=== PATIENT | female | born 1970 | race Caucasian/White ===

== ENCOUNTER 2019-12-02 13:01 | Emergency (ER) | payer SELFPAY ==
[2019-12-02] MEDS ORDERED: KETOROLAC TROMETHAMINE INJ/PF 30 MG/1 ML SDV IV ONE (13:59)
[2019-12-02] MEDS ORDERED: DIPHENHYDRAMINE HCL 50 MG/ML VIAL IV ONE (13:59)
[2019-12-02] MEDS ORDERED: PROCHLORPERAZINE EDISYLATE INJ 10 MG/2 ML VIAL IV ONE (13:59)
[2019-12-02] MEDS ORDERED: NORMAL SALINE 1000 ML 1,000 ML IV ONE (13:59)
[2019-12-02 14:30] LABS: ABSOLUTE BASOPHILS # (AUTO) 0.1 10^3/uL (0.0-0.2); ABSOLUTE EOSINOPHILS # (AUTO) 0.1 10^3/uL (0.0-0.6); ABSOLUTE LYMPHOCYTES (AUTO) 5.3 10^3/uL (0.5-4.7); ABSOLUTE MONOCYTES (AUTO) 0.9 10^3/uL (0.1-1.4); ABSOLUTE NEUT (AUTO) 10.3 10^3/uL (1.7-8.2); BASOPHILS % (AUTO) 0.7 % (0-2); EOSINOPHILS % (AUTO) 0.8 % (0-6); HEMATOCRIT 44.5 % (36.0-47.0); HEMOGLOBIN 15.3 g/dL (12.0-15.5); LYMPHOCYTES % (AUTO) 31.6 % (13-45); MEAN CORPUSCULAR HEMOGLOBIN 28.3 pg (27.0-33.4); MEAN CORPUSCULAR HGB CONC 34.4 g/dL (32.0-36.0); MEAN CORPUSCULAR VOLUME 82 fl (80-97); MONOCYTES % (AUTO) 5.2 % (3-13); PLATELET COUNT 336 10^3/uL (150-450); RED CELL DISTRIBUTION WIDTH 12.3 % (11.5-14.0); SEGMENTED NEUTROPHILS % (AUTO) 61.7 % (42-78); TOTAL CELLS COUNTED % (AUTO) 100 %; WHITE BLOOD COUNT 16.7 10^3/uL (4.0-10.5)
--- NOTE | 2019-12-02 14:33 | ER Document Report ---
Entered by MILAGRO KRISHNAN SCRIBE 12/02/19 3417 Acting as scribe for:JACQUI DOE MD ED Headache - General Chief Complaint: Headache Stated Complaint: HEADACHE Time Seen by Provider: 12/02/19 13:45 Mode of Arrival: Ambulatory Information source: Patient Notes: This 48-year-old female patient presents to the emergency department today with complaints of a headache for the last 3 days which is now getting worse. Patient is photophobic but she denies any phonophobia. Patient has a dry cough. Patient has not had a menstrual cycle in 3 months. Patient states she does not frequently get headaches. Later the patient provided additional history. She states that she is allergic to Compazine after initially denying any medication allergies. She was requesting Zofran for her nauseousness. She states that symptoms actually began Wednesday, 7 days ago when she states she just "felt off. She states "my mind is racing, I have insomnia, I have ringing in my ears". She also reports she was having diarrhea. She is requesting a CT scan of the head to evaluate for cancer because cancer runs in her family. She also wants to be evaluated for other types of cancer such as ovarian cancer. She states she was having aching in her right arm, and at one point had numbness to her right face so she also wants to be evaluated for stroke. She states she has had CT scans of the head in the past but it has been a few years. Patient does have a history of type 2 diabetes, cardiomyopathy but she is unclear of the etiology. She moved to this area from [place] in the past 1 to 2 months. - Related Data Allergies/Adverse Reactions: prochlorperazine [From Compazine] Adverse Reaction (Verified 12/02/19 15:23) Past Medical History - General Information source: Patient - Social History Smoking Status: Former Smoker Cigarette use (# per day): No Frequency of alcohol use: None Drug Abuse: None Lives with: Family Family History: Reviewed & Not Pertinent Review of Systems - Review of Systems Constitutional: No symptoms reported EENT: No symptoms reported Cardiovascular: No symptoms reported Respiratory: See HPI, Cough Gastrointestinal: No symptoms reported Genitourinary: No symptoms reported Female Genitourinary: No symptoms reported Musculoskeletal: No symptoms reported Skin: No symptoms reported Hematologic/Lymphatic: No symptoms reported Neurological/Psychological: See HPI, Headaches -: Yes All other systems reviewed and negative Physical Exam - Vital signs Vitals: Temp Pulse Resp BP Pulse Ox 98.6 F 91 16 126/81 H 98 12/02/19 13:12 12/02/19 13:12 12/02/19 13:12 12/02/19 13:12 12/02/19 13:12 - Notes Notes: Physical Exam: General: Alert, appears uncomfortable. Wearing sunglasses. HEENT: Normocephalic. Atraumatic. PERRL. Extraocular movements intact. Oropharynx clear. No lateral gaze nystagmus, rapid head movement does cause dizziness. Forehead and temporal muscle tenderness to palpation. Neck: Supple. Non-tender. Respiratory: No respiratory distress. Clear and equal breath sounds bilaterally. Cardiovascular: Regular rate and rhythm. Abdominal: Obese. Non-tender. No distension. Normal Bowel Sounds. Back: No gross abnormalities. Extremities: Moves all four extremities. Upper extremities: Normal inspection. Normal ROM. Lower extremities: Normal inspection. No edema. Normal ROM. Neurological: Normal cognition. AAOx4. Normal speech. Photophobia. Psychological: Normal affect. Normal Mood. Skin: Warm. Dry. Normal color. Course - Re-evaluation Re-evalutation: 12/02/19 16:44 The patient feels certain that she must have something like cancer in her brain because she has never had a headache like this with these kind of symptoms. She cannot be plicated with any reasonable discussion about headaches, viral syndromes, and brain cancers. 12/02/19 18:26 The patient was evaluated during the global COVID-19 pandemic and that diagnosis was suspected/considered upon their initial presentation. Their evaluation, treatment and testing was consistent with current guidelines for patients who present with complaints or symptoms that may be related to COVID-19. 12/02/19 18:27 The patient CBC shows elevated white count which is consistent with the vomiting she has been doing. The Chem-12 shows slightly elevated blood glucose and slightly elevated LFTs. The renal function GFR suggest a stage IIIa renal impairment, I would suspect she is stage II normally but is a little dehydrated from the nausea and vomiting. 12/02/19 18:28 After I showed the patient the negative CT scan, she seemed to feel better and was able to take her sunglasses off. - Vital Signs Vital signs: Temp Pulse Resp BP Pulse Ox 98.6 F 91 16 126/81 H 98 12/02/19 13:12 12/02/19 13:12 12/02/19 13:12 12/02/19 13:12 12/02/19 13:12 - Laboratory Result Diagrams: 12/02/19 14:14 12/02/19 14:14 Laboratory results interpreted by me: 12/02/19 12/02/19 12/02/19 14:14 14:14 16:10 WBC 16.7 H RBC 5.40 H Absolute Neuts (auto) 10.3 H Absolute Lymphs (auto) 5.3 H ESR 25 H Sodium 135.0 L Potassium 3.4 L Chloride 93 L BUN 23 H Est GFR ( Amer) 58 L Est GFR (MDRD) Non-Af 48 L Glucose 252 H AST 40 H ALT 76 H Urine Protein 100 H Urine Ketones 20 H Urine Ascorbic Acid 40 H - Diagnostic Test Radiology reviewed: Image reviewed, Reports reviewed - Noncontrasted CT scan of the head is unremarkable. Discharge - Discharge Clinical Impression: Viral syndrome, Encounter for laboratory testing for COVID-19 virus, Renal insufficiency Headache Qualifiers: Headache type: unspecified Headache chronicity pattern: unspecified pattern Intractability: intractable Qualified Code(s): R51.9 - Headache, unspecified Condition: Stable Disposition: HOME, SELF-CARE Instructions: COVID-19 Guidance for Persons Under Investigation Additional Instructions: Viral Syndrome The physician has diagnosed a viral infection. Viruses not only cause "colds," but can cause many different symptoms including generalized aching, fever, headache, cough, diarrhea, nausea, vomiting, and fatigue. The treatment, for the most part, is simply relief of symptoms. This means that antibiotics are usually not given. Rest, fluids, pain medications and, occasionally, medication for the specific symptoms that are most bothersome will be prescribed. Use good handwashing to avoid passing the virus to others. Shared toys should be cleaned with disinfectant. Clean the toilets, sinks, and counter surfaces in bathrooms. Launder clothing in hot water. Contact the physician if you develop any new or unusual symptoms such as severe headache, stiff neck, high fever, chest pain, productive cough, or shortness of breath. You should be rechecked if you don't see marked improvement within seven to 10 days. Headache The physician does not feel that the headache you are experiencing has a serious underlying cause. Most headaches are due to emotional stress, with resultant muscle tension (tension headache). Occasionally, headaches are secondary to changes in the blood vessels of the scalp (vascular headache and migraine headache). Sometimes, a headache is the first symptom of another developing illness, such as a viral infection. You have no evidence of stroke, bleeding, meningitis, or other serious cause of your headache. The treatment of headaches varies with the severity and cause of the pain. Not all headaches need pain shots. In fact, there is evidence that using narcotics for headaches may make them worse in the long run. The physician will determine the therapy that's in your best interest. If you develop a fever, if the headache is different from any you've previously experienced, or if the headache progressively worsens, then call your physician at once or go to the emergency room. The diffuse, multiple symptoms that you are having are most likely due to a viral syndrome. You are being tested for Covid since this disease is a viral illness and can cause all the symptoms you are experiencing. You should self isolate at home until you get the results of the Covid test. Rest in a cool quiet dark room. Take Tylenol and ibuprofen for headache and pain. Take Zofran as dispensed for nauseousness if needed. Take Imodium-AD for diarrhea if it continues to be a problem. Sip cool clear liquids throughout the day in the evening so you not become dehydrated. The lab work did show that your renal function is slightly impaired, you should get your old records to compare with your current lab work. Follow-up with a local primary care provider to manage your medical problems, and to repeat your lab work to be sure your kidney function improves to its baseline after you have been able to hold down fluids for several days. RETURN TO THE EMERGENCY ROOM IF ANY NEW OR WORSENING SYMPTOMS. Prescriptions: Ondansetron [Zofran Odt 4 mg Tablet] 1 - 2 tab PO Q4H PRN #10 tab.rapdis PRN Reason: I personally performed the services described in the documentation, reviewed and edited the documentation which was dictated to the scribe in my presence, and it accurately records my words and actions.
[2019-12-02] MEDS ORDERED: METOCLOPRAMIDE HCL INJ/PF 10 MG/2 ML SDV IV ONE (14:36)
[2019-12-02] MEDS ORDERED: ONDANSETRON HCL INJ/PF 4 MG/2 ML SDV IV ONE (14:37)
[2019-12-02 14:48] LABS: ALBUMIN 4.5 g/dL (3.5-5.0); ALKALINE PHOSPHATASE 84 U/L (38-126); ANION GAP 16 (5-19); ASPARTATE AMINO TRANSFERASE 40 U/L (14-36); BILIRUBIN,DIRECT 0.3 mg/dL (0.0-0.4); BILIRUBIN,TOTAL 0.7 mg/dL (0.2-1.3); BLOOD UREA NITROGEN 23 mg/dL (7-20); C-REACTIVE PROTEIN 6.6 mg/L (<10.0); CALCIUM 10.2 mg/dL (8.4-10.2); CARBON DIOXIDE 26 mmol/L (22-30); CHLORIDE 93 mmol/L (98-107); CREATINE KINASE 35 U/L (30-135); GLUCOSE 252 mg/dL (75-110); POTASSIUM 3.4 mmol/L (3.6-5.0)
[2019-12-02 15:10] LABS: ERYTHROCYTE SEDIMENTATION RATE 25 mm/hr (0-20)
[2019-12-02] MEDS ORDERED: RINGERS SOLUTION,LACTATED 1,000 ML IV ONE (15:22)
[2019-12-02 16:33] LABS: APPEARANCE,URINE SLIGHTLY-CLOUDY; BILIRUBIN,URINE NEGATIVE (NEGATIVE); COLOR,URINE YELLOW; GLUCOSE, URINE NEGATIVE (NEGATIVE); KETONES,URINE 20 mg/dL (NEGATIVE); LEUKOCYTE ESTERASE,URINE NEGATIVE (NEGATIVE); NITRITE,URINE NEGATIVE (NEGATIVE); PROTEIN,URINE 100 mg/dL (NEGATIVE); URINE SPECIFIC GRAVITY 1.028; UROBILINOGEN,URINE NEGATIVE mg/dL (<2.0)
--- NOTE | 2019-12-02 17:50 | RADIOLOGY REPORT (SQ) ---
EXAM DESCRIPTION: CT HEAD WITHOUT IMAGES COMPLETED DATE/TIME: 12/02/2019 5:39 pm REASON FOR STUDY: new headaches COMPARISON: None. TECHNIQUE: Axial images acquired through the brain without intravenous contrast. Images reviewed wi th bone, brain and subdural windows. Additional sagittal and coronal reconstructions were generated. Images stored on PACS. All CT scanners at this facility use dose modulation, iterative reconstruction, and/or weight based d osing when appropriate to reduce radiation dose to as low as reasonably achievable (ALARA). [facility]: Dose Right [facility]: CareDose [facility]: Dose Right [facility]: Teradose 4D [facility]: Smart [employer] RADIATION DOSE: CT Rad equipment meets quality standard of care and radiation dose reduction techniq ues were employed. CTDIvol: 53.2 mGy. DLP: 937 mGy-cm. mGy. LIMITATIONS: None. FINDINGS: VENTRICLES: Normal size and contour. CEREBRUM: No masses. No hemorrhage. No midline shift. No evidence for acute infarction. Normal gra y/white matter differentiation. No areas of low density in the white matter. CEREBELLUM: No masses. No hemorrhage. No alteration of density. No evidence for acute infarction. EXTRAAXIAL SPACES: No fluid collections. No masses. ORBITS AND GLOBE: No intra- or extraconal masses. Normal contour of globe without masses. CALVARIUM: No fracture. PARANASAL SINUSES: No fluid or mucosal thickening. SOFT TISSUES: No mass or hematoma. OTHER: No other significant finding. IMPRESSION: NORMAL BRAIN CT WITHOUT CONTRAST. EVIDENCE OF ACUTE STROKE: NO. COMMENT: Quality ID # [id number]: Final reports with documentation of one or more dose reduction techniques (e.g., Automated exposure control, adjustment of the mA and/or kV according to patient size, use of iterative reconstruction technique) TECHNICAL DOCUMENTATION: JOB ID: [id number] [employer]- All Rights Reserved Reading location - IP/workstation name: [email or web address]
[2019-12-02] MEDS ORDERED: ONDANSETRON ODT 4 MG TAB (6 TAB/ER DISP) PO PRN (18:40)
[2019-12-02 19:08] VITALS: BP 124/74
== END 2019-12-02 19:05 | disposition home or self-care (01) ==
LOC: ER 13:01
DX: R51.9 Headache, unspecified (principal); H53.149 Visual discomfort, unspecified; B34.9 Viral infection, unspecified; N28.9 Disorder of kidney and ureter, unspecified; E86.0 Dehydration; R11.2 Nausea with vomiting, unspecified; R05 Cough; R19.7 Diarrhea, unspecified; M79.601 Pain in right arm; R20.0 Anesthesia of skin; E11.65 Type 2 diabetes mellitus with hyperglycemia; Z87.891 Personal history of nicotine dependence; Z88.8 Allergy status to other drugs, medicaments and biological substances; Z20.828 Contact with and (suspected) exposure to other viral communicable diseases
CPT/HCPCS: 99285; 96361; 96374; 96375; 36415; 82550; 85025; 85652; 87635; 86140; 80053; 81001; 70450; J1200; J1885; J2765; J2405; J7030; J7120; C9803